=== PATIENT | female | born 1990 | race Caucasian/White ===

== ENCOUNTER 2023-03-19 14:41 | Outpatient (OUT) | payer OTHER, SELFPAY ==
[2023-03-19 15:51] LABS: Percent Iron Saturation 24.9 %
[2023-03-19 16:03] LABS: Thyroid Stimulating Hormone 0.656 uIU/mL (0.358-3.740)
[2023-03-19 16:18] LABS: Basophils Percent Auto 0.9 % (0.2-2.0); Eosinophils Percent Auto 0.7 % (0.9-7.0); Hematocrit 40.1 % (36.0-48.0); Hemoglobin 12.8 g/dL (12.0-16.0); Immature Granulocytes Abs Auto 0.01 10^3/uL (0.00-0.03); Immature Granulocytes Pct Auto 0.2 % (0.0-0.5); Lymphocytes Absolute Auto 1.8 10^3/uL (1.2-3.8); Mean Corpuscular HGB Conc 31.9 g/dL (29.9-35.2); Mean Corpuscular Hemoglobin 27.8 pg (26.7-34.0); Mean Platelet Volume 9.8 fL (9.5-13.5); Monocytes Absolute Auto 0.3 10^3/uL (0.3-0.8); Monocytes Percent Auto 7.7 % (1.7-12.0); Neutrophils Absolute Auto 2.2 10^3/uL (1.4-6.5); Neutrophils Percent Auto 50.5 % (43.0-75.0); Platelet Count 214 10^3/uL (150-450); Red Blood Count 4.61 10^6/uL (4.20-5.40); Red Cell Distribution Width 16.2 % (11.0-15.0); White Blood Count 4.4 10^3/uL (4.0-11.0)
[2023-03-20 06:09] LABS: Triiodothyronine (T3) 76 ng/dL (71-180)
== END 2023-03-19 14:42 | disposition home or self-care (01) ==
LOC: LAB 14:48
DX: L63.9 Alopecia areata, unspecified (principal)
CPT/HCPCS: 36415; 83540; 83550; 84436; 84439; 84443; 84480; 85025